=== PATIENT | female | born 1995 | race Caucasian/White ===

== ENCOUNTER 2019-08-17 22:24 | Inpatient (IN) | payer BC ==
[2019-08-18] MEDS ORDERED: Nalbuphine 10 MG/ML Syringe IVPUSH PRN (00:11)
[2019-08-18] MEDS ORDERED: Ondansetron 4 MG/2 ML SDV IVPUSH PRN (00:11)
[2019-08-18] MEDS ORDERED: Sodium Chloride 0.9% 10 ML Syringe FLUSH PRN (00:11)
[2019-08-18] MEDS ORDERED: Lactated Ringers 1,000 ML IV SCH (00:15)
[2019-08-18] MEDS ORDERED: Oxytocin/Lactated Ringers 10 UNIT/1,000 ML BAG IV SCH (02:00)
[2019-08-18] MEDS ORDERED: Misoprostol 200 MCG Tab ONE (02:57)
--- NOTE | 2019-08-18 03:06 | PCM.DEL ---
L & D Note - General Info Date of Service: 08/18/19 - Delivery Note Labor: Spontaneous Delivery Outcome: Livebirth Delivery Method: Spontaneous Vaginal Delivery-Single Delivery Mode: Spontaneous Presentation: Right Occiput Anterior (LASHA) Nuchal Cord: None Anesthesia Type: Epidural Amniotic Fluid Description: Clear Episiotomy Type: None Laceration: 1st Degree Suture type: Vicryl Suture size: 2-0 Placenta: Intact, Spontaneous Cord: 3 Vessels Estimated Blood Loss: 400 Resuscitation Needed: Yes [place]: Bulb Syringe, Stimulated, Warmed, [place] Used, Warmer Used Delivery Comments (Free Text/Narrative):: Patient found to be complete and began pushing. With maternal pushing effort head delivered from an LASHA presentation. No nuchal cord present. With gentle downward traction shoulders and body delivered. placed on maternal abdomen. Cord clamped and cut. Cord blood obtained. Placenta allowed time to separate and expelled intact. There was a moderate amount of bleeding noted at this time not responsive to IV Pitocin or uterine massage. 600 mcg of buccal Cytotec given with good response. Inspection of the perineum showed a small, first-degree, laceration which was repaired with an interrupted suture of 2-0 Vicryl - General Info Date of Service: 08/18/19 - Patient Data Vitals - Most Recent: Last Vital Signs Temp 37.1 C 08/18/19 00:14 Pulse 86 08/18/19 00:14 Resp 16 08/18/19 00:14 BP 115/65 08/18/19 00:14 Pulse Ox 98 08/18/19 00:14 Weight - Most Recent: 85.729 kg I&O - Last 24 Hours: Intake & Output 08/17/19 08/17/19 08/18/19 14:59 22:59 06:59 Intake Total 500 Balance 500 Lab Results Last 24 Hours: Laboratory Results - last 24 hr 08/18/19 Range/Units 00:25 WBC 13.46 H (3.98-10.04) K/mm3 RBC 3.69 L (3.98-5.22) M/mm3 Hgb 11.6 D (11.2-15.7) gm/dl Hct 35.4 (34.1-44.9) % MCV 95.9 H D (79.4-94.8) fl MCH 31.4 (25.6-32.2) pg MCHC 32.8 (32.2-35.5) g/dl RDW Std Deviation 43.4 (36.4-46.3) fL Plt Count 161 L (182-369) K/mm3 MPV 8.7 L (9.4-12.3) fl Neut % (Auto) 79.5 H (34.0-71.1) % Lymph % (Auto) 14.0 L (19.3-51.7) % [place] % (Auto) 5.7 (4.7-12.5) % Eos % (Auto) 0.6 L (0.7-5.8) Baso % (Auto) 0.1 (0.1-1.2) % Neut # (Auto) 10.70 H (1.56-6.13) K/mm3 Lymph # (Auto) 1.88 (1.18-3.74) K/mm3 [place] # (Auto) 0.77 H (0.24-0.36) K/mm3 Eos # (Auto) 0.08 (0.04-0.36) K/mm3 Baso # (Auto) 0.01 (0.01-0.08) K/mm3 Med Orders - Current: Current Medications Lactated Ringer's (Ringers, Lactated) 1,000 mls @ 100 mls/hr IV ASDIRECTED RONALD Last Admin: 08/17/19 23:55 Dose: 500 mls/hr Documented by: Oxytocin/Lactated Ringer's (Pitocin In Lr 10 Units/1,000 Ml) 10 unit in 1,000 mls @ 500 mls/hr IV .CONTINUOUS RONALD Nalbuphine HCl (Nubain) 10 mg IVPUSH Q2H PRN PRN Reason: Pain Ondansetron HCl (Zofran) 4 mg IVPUSH Q4H PRN PRN Reason: Nausea/Vomiting Sodium Chloride (Saline Flush) 10 ml FLUSH ASDIRECTED PRN PRN Reason: Keep Vein Open Discontinued Medications Misoprostol (Cytotec) Confirm Administered Dose 600 mcg .ROUTE .STK-MED ONE Stop: 08/18/19 02:58 - Problem List & Annotations (1) 39 weeks gestation of SNOMED Code(s): 05488493 Code(s): Z3A.39 - 39 WEEKS GESTATION OF Status: Acute Current Visit: Yes (2) Vaginal delivery SNOMED Code(s): 811332487 Code(s): O80 - ENCOUNTER FOR FULL-TERM UNCOMPLICATED DELIVERY Status: Acute Current Visit: No - Problem List Review Problem List Initiated/Reviewed/Updated: Yes - My Orders Last 24 Hours: My Active Orders 08/18/19 00:11 Patient Status [ADT] Routine Activity as Tolerated [RC] PFP Communication Order [RC] ASDIRECTED Notify Provider [RC] PFP Notify Provider [RC] PRN Nalbuphine [Nubain] 10 mg IVPUSH Q2H PRN Ondansetron [Zofran] 4 mg IVPUSH Q4H PRN Sodium Chloride 0.9% [Saline Flush] 10 ml FLUSH ASDIRECTED PRN Electronic Heart Tones Ext w TOCO [WOMSER] Routine Electronic Heart Tones Internal [WOMSER] Per Unit Routine Peripheral IV Insertion Adult [OM.PC] Routine Resuscitation Status Routine 08/18/19 00:12 Heart Tones [RC] ASDIRECTED Peripheral IV Care [RC] Q2HR 08/18/19 00:14 Vital Signs [RC] 09,15,21,03 08/18/19 00:15 Lactated Ringers [Ringers, Lactated] 1,000 ml IV ASDIRECTED 08/18/19 00:16 Vaginal Exam [RC] PRN 08/18/19 00:25 RAPID PLASMA REAGIN,RPR [CHEM] Routine 08/18/19 01:50 Notify Provider [RC] PRN 08/18/19 02:00 Oxytocin/Lactated Ringers [Pitocin in LR 10 Units/1,000 ML] 10 unit in 1,000 ml IV .CONTINUOUS 08/18/19 Breakfast Regular Diet [DIET] - Assessment Assessment:: PPD#0 - Plan Plan:: * Routine cares * Breast-feeding * Discharged home in 1-2 days
--- NOTE | 2019-08-18 03:06 | PCM.LDHP ---
L&D History of Present Illness - General Date of Service: 08/18/19 Admit Problem/Dx: Patient Status Order with Admit Dx/Problem 08/18/19 00:11 Patient Status [ADT] Routine Admission Diagnosis/Problem Admission Diagnosis/Problem Source of Information: Patient History Limitations: Reports: No Limitations - History of Present Illness Introduction:: Patient is a 23-year-old currently at 39-2/7 weeks gestation who presented shortly before midnight in active labor. Contractions started around 5 PM. Presented to the hospital around 11 PM. - Related Data Allergies/Adverse Reactions: Allergies Allergy/AdvReac Type Severity Reaction Status Date / Time No Known Allergies Allergy Verified 09/24/14 06:43 Home Medications: Home Meds Control 1 tab PO DAILY 06/09/15 [History] Past Medical History Respiratory History: Reports: Asthma Gastrointestinal History: Reports: GERD PLASTER MIXER History: Reports: : 2 Para: 1 LMP (Approximate): - Past Surgical History HEENT Surgical History: Reports: Oral Surgery Other HEENT Surgeries/Procedures: wisdom teeth Social & Family History - Family History Family Medical History: Noncontributory - Tobacco Use Smoking Status *Q: Former Smoker Years of Tobacco use: 1 Packs/Tins Daily: 0.2 Used Tobacco, but Quit: Yes Month/Year Tobacco Last Used: 06/27/2013 Second Hand Smoke Exposure: No - Caffeine Use Caffeine Use: Reports: Coffee Caffeine Use Comment: 1-2 daily - Alcohol Use Alcohol Use History: No - Recreational Drug Use Recreational Drug Use: No H&P Review of Systems - Review of Systems: Review Of Systems: See Below General: Reports: No Symptoms Pulmonary: Reports: No Symptoms Cardiovascular: Reports: No Symptoms Gastrointestinal: Reports: Abdominal Pain Genitourinary: Reports: No Symptoms Musculoskeletal: Reports: No Symptoms Psychiatric: Reports: No Symptoms Neurological: Reports: No Symptoms L&D Exam - Exam Exam: See Below - Vital Signs Vital Signs: Last Vital Signs Temp 37.1 C 08/18/19 00:14 Pulse 86 08/18/19 00:14 Resp 16 08/18/19 00:14 BP 115/65 08/18/19 00:14 Pulse Ox 98 08/18/19 00:14 Weight: 85.729 kg - OB Specific Contraction Intensity: Moderate to Strong Movement: Active Heart Tones: Present Heart Tones per Min: 120 Heart Rate (FHR) Variability: Moderate (6-25 bmp) Presentation: Vertex - Benton Score Benton Score Cervix Position: Anterior Benton Score Consistency: Soft Benton Score Effacement: >80% Benton Score Dilation: > 5 cm Benton Score 's Station: -1 ,0 Benton Score Total: 12 - Exam General: Alert, Oriented, Cooperative Lungs: Clear to Auscultation, Normal Respiratory Effort Cardiovascular: Regular Rate, Regular Rhythm GI/Abdominal Exam: Soft, Non-Tender Genitourinary: Normal external exam Extremities: Normal Inspection Skin: Warm, Dry, Intact - Patient Data Lab Results Last 24 hrs: Laboratory Results - last 24 hr 08/18/19 Range/Units 00:25 WBC 13.46 H (3.98-10.04) K/mm3 RBC 3.69 L (3.98-5.22) M/mm3 Hgb 11.6 D (11.2-15.7) gm/dl Hct 35.4 (34.1-44.9) % MCV 95.9 H D (79.4-94.8) fl MCH 31.4 (25.6-32.2) pg MCHC 32.8 (32.2-35.5) g/dl RDW Std Deviation 43.4 (36.4-46.3) fL Plt Count 161 L (182-369) K/mm3 MPV 8.7 L (9.4-12.3) fl Neut % (Auto) 79.5 H (34.0-71.1) % Lymph % (Auto) 14.0 L (19.3-51.7) % [place] % (Auto) 5.7 (4.7-12.5) % Eos % (Auto) 0.6 L (0.7-5.8) Baso % (Auto) 0.1 (0.1-1.2) % Neut # (Auto) 10.70 H (1.56-6.13) K/mm3 Lymph # (Auto) 1.88 (1.18-3.74) K/mm3 [place] # (Auto) 0.77 H (0.24-0.36) K/mm3 Eos # (Auto) 0.08 (0.04-0.36) K/mm3 Baso # (Auto) 0.01 (0.01-0.08) K/mm3 Result Diagrams: 08/18/19 00:25 - Problem List (1) 39 weeks gestation of SNOMED Code(s): 25551880 ICD Code: Z3A.39 - 39 WEEKS GESTATION OF Status: Acute Current Visit: Yes Problem List Initiated/Reviewed/Updated: Yes Orders Last 24hrs: Active Orders 24 hr Category Date Time Status Patient Status [ADT] Routine ADT 08/18/19 00:11 Active Activity as Tolerated [RC] PFP Care 08/18/19 00:11 Active Communication Order [RC] ASDIRECTED Care 08/18/19 00:11 Active Heart Tones [RC] ASDIRECTED Care 08/18/19 00:12 Active Notify Provider [RC] PFP Care 08/18/19 00:11 Active Notify Provider [RC] PRN Care 08/18/19 00:11 Active Notify Provider [RC] PRN Care 08/18/19 01:50 Active Peripheral IV Care [RC] Q2HR Care 08/18/19 00:12 Active Vaginal Exam [RC] PRN Care 08/18/19 00:16 Active Vital Signs [RC] 09,15,21,03 Care 08/18/19 00:14 Active Regular Diet [DIET] Diet 08/18/19 Breakfast Active RAPID PLASMA REAGIN,RPR [CHEM] Routine Lab 08/18/19 00:25 Received Lactated Ringers [Ringers, Lactated] 1,000 ml Med 08/18/19 00:15 Active IV ASDIRECTED Nalbuphine [Nubain] Med 08/18/19 00:11 Active 10 mg IVPUSH Q2H PRN Ondansetron [Zofran] Med 08/18/19 00:11 Active 4 mg IVPUSH Q4H PRN Oxytocin/Lactated Ringers [Pitocin in LR 10 Units/1,000 Med 08/18/19 02:00 Active ML] 10 unit in 1,000 ml IV .CONTINUOUS Sodium Chloride 0.9% [Saline Flush] Med 08/18/19 00:11 Active 10 ml FLUSH ASDIRECTED PRN Electronic Heart Tones Ext w TOCO [WOMSER] Oth 08/18/19 00:11 Ordered Routine Electronic Heart Tones Internal [WOMSER] Per Unit Oth 08/18/19 00:11 Ordered Routine Peripheral IV Insertion Adult [OM.PC] Routine Oth 08/18/19 00:11 Ordered Resuscitation Status Routine Resus Stat 08/18/19 00:11 Ordered Medication Orders Lactated Ringer's (Ringers, Lactated) 1,000 mls @ 100 mls/hr IV ASDIRECTED RONALD Last Admin: 08/17/19 23:55 Dose: 500 mls/hr Documented by: SRIAM Oxytocin/Lactated Ringer's (Pitocin In Lr 10 Units/1,000 Ml) 10 unit in 1,000 mls @ 500 mls/hr IV .CONTINUOUS RONALD Nalbuphine HCl (Nubain) 10 mg IVPUSH Q2H PRN PRN Reason: Pain Ondansetron HCl (Zofran) 4 mg IVPUSH Q4H PRN PRN Reason: Nausea/Vomiting Sodium Chloride (Saline Flush) 10 ml FLUSH ASDIRECTED PRN PRN Reason: Keep Vein Open Assessment/Plan Comment:: * Labs already done and normal * GBS negative, no need for antibiotics * Pain management per patient preference * Anticipate
[2019-08-18] MEDS ORDERED: Misoprostol 200 MCG Tab PO STA (03:07)
[2019-08-18] MEDS ORDERED: Benzocaine/Menthol 20%-0.5% Spray 56 GM Canister TOP PRN (03:29)
[2019-08-18] MEDS ORDERED: Witch Hazel Medicated Pads 40/Jar TOP PRN (03:29)
[2019-08-18] MEDS ORDERED: Docusate Sodium 100 MG Cap PO PRN (03:29)
[2019-08-18] MEDS: Ibuprofen 600 MG Tab PO PRN ×2 (03:41→11:00)
[2019-08-18] MEDS: Acetaminophen 325 MG Tab PO PRN ×2 (07:30→15:44)
[2019-08-19] MEDS: Ibuprofen 600 MG Tab PO PRN (04:51)
--- NOTE | 2019-08-19 07:10 | PCM.PNPP ---
- General Info Date of Service: 08/19/19 Functional Status: Reports: Pain Controlled, Tolerating Diet, Ambulating, Urinating - Review of Systems General: Reports: No Symptoms Pulmonary: Reports: No Symptoms Cardiovascular: Reports: No Symptoms Gastrointestinal: Reports: No Symptoms Genitourinary: Reports: No Symptoms Musculoskeletal: Reports: No Symptoms Neurological: Reports: No Symptoms - Patient Data Vital Signs - Most Recent: Last Vital Signs Temp 36.7 C 08/18/19 15:00 Pulse 63 08/19/19 03:17 Resp 15 08/19/19 03:17 BP 106/56 L 08/19/19 03:17 Pulse Ox 97 08/19/19 03:17 Weight - Most Recent: 85.729 kg Lab Results - Last 24 Hours: Laboratory Results - last 24 hr 08/18/19 Range/Units 00:25 RPR Non-reactive (NONREACTIVE) Med Orders - Current: Current Medications Acetaminophen (Tylenol) 650 mg PO Q4H PRN PRN Reason: mild pain or fever Last Admin: 08/18/19 15:44 Dose: 650 mg Documented by: Benzocaine/Menthol (Dermoplast Pain Relief [place]) 0 gm TOP ASDIRECTED PRN PRN Reason: Perineal Comfort Measure Docusate Sodium (Colace) 100 mg PO BID PRN PRN Reason: Constipation Ibuprofen (Motrin) 600 mg PO Q6H PRN PRN Reason: Mild pain or fever Last Admin: 08/19/19 04:51 Dose: 600 mg Documented by: Zeferino Perez (Nolbertockmodesta) 1 pad TOP ASDIRECTED PRN PRN Reason: Perineal Comfort Measure Discontinued Medications Lactated Ringer's (Ringers, Lactated) 1,000 mls @ 100 mls/hr IV ASDIRECTED RONALD Last Admin: 08/17/19 23:55 Dose: 500 mls/hr Documented by: Oxytocin/Lactated Ringer's (Pitocin In Lr 10 Units/1,000 Ml) 10 unit in 1,000 mls @ 500 mls/hr IV .CONTINUOUS RONALD Last Admin: 08/18/19 02:55 Dose: 500 mls/hr Documented by: Misoprostol (Cytotec) Confirm Administered Dose 600 mcg .ROUTE .STK-MED ONE Stop: 08/18/19 02:58 Last Admin: 08/18/19 03:46 Dose: Not Given Documented by: Misoprostol (Cytotec) 600 mcg PO NOW STA Stop: 08/18/19 03:08 Last Admin: 08/18/19 02:57 Dose: 600 mcg Documented by: Nalbuphine HCl (Nubain) 10 mg IVPUSH Q2H PRN PRN Reason: Pain Ondansetron HCl (Zofran) 4 mg IVPUSH Q4H PRN PRN Reason: Nausea/Vomiting Sodium Chloride (Saline Flush) 10 ml FLUSH ASDIRECTED PRN PRN Reason: Keep Vein Open - Infant Interaction Disposition, : [place] in Room with Family Interaction: Holding Infant Feeding: Attempted ; Nursed Fair/Poor Support Person: - Recovery Exam Fundal Tone: Firm Fundal Level: 1 Fingerbreadths Below Umbilicus Fundal Placement: Midline Lochia Amount: Small Lochia Color: Rubra/Red Perineum Description: Intact, Minimal Bruising/Swelling Episiotomy/Laceration: Approximated Bladder Status: Voiding Urinary Elimination: Voided - Exam General: Alert, Oriented, Cooperative GI/Abdominal Exam: Soft, Non-Tender Extremities: Normal Inspection Skin: Warm, Dry, Intact - Problem List & Annotations (1) 39 weeks gestation of SNOMED Code(s): 77726531 Code(s): Z3A.39 - 39 WEEKS GESTATION OF Status: Acute Current Visit: Yes (2) Vaginal delivery SNOMED Code(s): 138313284 Code(s): O80 - ENCOUNTER FOR FULL-TERM UNCOMPLICATED DELIVERY Status: Acute Current Visit: No - Problem List Review Problem List Initiated/Reviewed/Updated: Yes - My Orders Last 24 Hours: My Active Orders 08/18/19 Breakfast Regular Diet [DIET] 08/19/19 03:29 Heat Therapy [OM.PC] PRN 08/19/19 07:09 Ready for Discharge [RC] PER UNIT ROUTINE - Assessment Assessment:: PPD#1 - Plan Plan:: * Routine cares * Breast-feeding * Discharged home tomorrow
--- NOTE | 2019-08-19 07:11 | PCM.DCSUM1 ---
Discharge Summary - Discharge Data Discharge Date: 08/19/19 Discharge Disposition: Home, Self-Care 01 Condition: Good - Referral to Home Health Primary Care Physician: Vida Jones MD - Discharge Diagnosis/Problem(s) (1) 39 weeks gestation of SNOMED Code(s): 79144752 ICD Code: Z3A.39 - 39 WEEKS GESTATION OF Status: Acute Current Visit: Yes (2) Vaginal delivery SNOMED Code(s): 947987013 ICD Code: O80 - ENCOUNTER FOR FULL-TERM UNCOMPLICATED DELIVERY Status: Acute Current Visit: No - Patient Summary/Data Complications: None Consults: None Recommended Follow-up Testing/Procedures: Follow up in 3 weeks Hospital Course: 23 y/o at 39 2/7 wks who presented in labor. Progressed well to complete dilation and underwent an uncomplicated . See delivery note. did well and was discharged home on PPD#1 - Patient Instructions Diet: Regular Diet as Tolerated Activity: As Tolerated Activity, Other: Pelvic Rest for 6 weeks Driving: May Drive Today Showering/Bathing: May Shower Showering/Bathing, Other: May Bathe Notify Provider of: Fever, Increased Pain, Swelling and Redness, Drainage, Nausea and/or Vomiting - Discharge Plan *PRESCRIPTION DRUG MONITORING PROGRAM REVIEWED*: No *COPY OF PRESCRIPTION DRUG MONITORING REPORT IN PATIENT KHOA: No Home Medications: Home Meds Docusate Sodium [Colace] 100 mg PO BID PRN cap 08/19/19 [Rx] Ibuprofen [Motrin] 600 mg PO Q6H PRN tablet 08/19/19 [Rx] Referrals: Vida Jones MD [Primary Care Provider] - (3 weeks for check) - Discharge Summary/Plan Comment DC Time >30 min.: No - Patient Data Vitals - Most Recent: Last Vital Signs Temp 36.7 C 08/18/19 15:00 Pulse 63 08/19/19 03:17 Resp 15 08/19/19 03:17 BP 106/56 L 08/19/19 03:17 Pulse Ox 97 08/19/19 03:17 Weight - Most Recent: 85.729 kg Lab Results - Last 24 hrs: Laboratory Results - last 24 hr 08/18/19 Range/Units 00:25 RPR Non-reactive (NONREACTIVE) Med Orders - Current: Current Medications Acetaminophen (Tylenol) 650 mg PO Q4H PRN PRN Reason: mild pain or fever Last Admin: 08/18/19 15:44 Dose: 650 mg Documented by: Benzocaine/Menthol (Dermoplast Pain Relief [place]) 0 gm TOP ASDIRECTED PRN PRN Reason: Perineal Comfort Measure Docusate Sodium (Colace) 100 mg PO BID PRN PRN Reason: Constipation Ibuprofen (Motrin) 600 mg PO Q6H PRN PRN Reason: Mild pain or fever Last Admin: 08/19/19 04:51 Dose: 600 mg Documented by: Zeferino Perez (Jeramy) 1 pad TOP ASDIRECTED PRN PRN Reason: Perineal Comfort Measure Discontinued Medications Lactated Ringer's (Ringers, Lactated) 1,000 mls @ 100 mls/hr IV ASDIRECTED RONALD Last Admin: 08/17/19 23:55 Dose: 500 mls/hr Documented by: Oxytocin/Lactated Ringer's (Pitocin In Lr 10 Units/1,000 Ml) 10 unit in 1,000 mls @ 500 mls/hr IV .CONTINUOUS RONALD Last Admin: 08/18/19 02:55 Dose: 500 mls/hr Documented by: Misoprostol (Cytotec) Confirm Administered Dose 600 mcg .ROUTE .STK-MED ONE Stop: 08/18/19 02:58 Last Admin: 08/18/19 03:46 Dose: Not Given Documented by: Misoprostol (Cytotec) 600 mcg PO NOW STA Stop: 08/18/19 03:08 Last Admin: 08/18/19 02:57 Dose: 600 mcg Documented by: Nalbuphine HCl (Nubain) 10 mg IVPUSH Q2H PRN PRN Reason: Pain Ondansetron HCl (Zofran) 4 mg IVPUSH Q4H PRN PRN Reason: Nausea/Vomiting Sodium Chloride (Saline Flush) 10 ml FLUSH ASDIRECTED PRN PRN Reason: Keep Vein Open
[2019-08-19 11:41] VITALS: BP 111/61
[2019-08-19 11:43] VITALS: PULSE 72
== END 2019-08-19 09:30 | disposition home or self-care (01) | DRG 560 ==
LOC: JD.OBCHECK 22:24 → JD.OB 22:28 → JD.OBCHECK 08-18 00:11 → JD.OB 08-18 00:39 → OBSVTOIN 08-18 02:45 → JD.OB 08-18 02:46
PROVIDERS: ADMIT Obstetrics & Gynecology; ATTEND Obstetrics & Gynecology
PROC: 10E0XZZ Delivery of Products of Conception, External Approach (ICD-10-PCS; principal; 2019-08-18)
PROC: 10907ZC Drainage of Amniotic Fluid, Therapeutic from Products of Conception, Via Natural or Artificial Opening (ICD-10-PCS; 2019-08-18)
PROC: 0HQ9XZZ Repair Perineum Skin, External Approach (ICD-10-PCS; 2019-08-18)
PROC: 3E0R3BZ Introduction of Anesthetic Agent into Spinal Canal, Percutaneous Approach (ICD-10-PCS; 2019-08-18)
DX: O70.0 First degree perineal laceration during delivery (principal); Z3A.39 39 weeks gestation of pregnancy; Z37.0 Single live birth; Z87.891 Personal history of nicotine dependence
CPT/HCPCS: 36415; 59025; 59409; 85025; 86592; A9270-GY; J2590; J7120